=== PATIENT | male | born 1970 | race Caucasian/White ===

== ENCOUNTER 2020-07-06 11:01 | Emergency (ER) | payer OTHER ==
[2020-07-06 12:04] LABS: BASOPHIL 0.3 % (0-2); EOSINOPHIL 1.4 % (0-5); HCT 43.5 % (42.0-52.0); HGB 15.1 g/dl (13.2-18.0); LYMPHOCYTE 31.8 % (15-48); MCH 32.1 pg (25.0-31.0); MCHC 34.7 g/dL (32.0-36.0); MCV 92.4 fL (78.0-100.0); MONOCYTE 8.9 % (0-12); NEUTROPHIL 57.3 % (41-80); NRBC 0; PLT 252 K/uL (150-400); RBC 4.71 M/uL (4.70-6.00); RDW 13.6 % (11.5-14.0); WBC 11.7 K/uL (4.0-10.5)
[2020-07-06 12:16] LABS: CREATININE 0.75 mg/dL (0.67-1.17); POTASSIUM 3.8 mmol/L (3.5-5.1)
[2020-07-06 12:29] LABS: CKMB 4.3 ng/mL (0.0-3.6)
[2020-07-06 12:58] LABS: INR 0.99 (0.9-1.2); PROTHROMBIN TIME 12.4 SECONDS (11.4-13.6); PTT 28.4 SECONDS (22.2-34.7)
== END 2020-07-06 15:38 | disposition other institution (70) ==
LOC: FER 11:01
PROVIDERS: Emergency Medicine
DX: I21.09 ST elevation (STEMI) myocardial infarction involving other coronary artery of anterior wall (principal); F17.210 Nicotine dependence, cigarettes, uncomplicated; Z88.0 Allergy status to penicillin; Z20.822 Contact with and (suspected) exposure to COVID-19
CPT/HCPCS: 36415; 71046; 80048; 82553; 84484; 85025; 85610; 85730; 93005; J1644; U0002